=== PATIENT | male | born 1935 | race Two or more races ===

== ENCOUNTER 2025-07-22 14:01 | Inpatient (IN) | payer OTHER ==
[~2025-07-22] VITALS: Ht 162.6 cm; Wt 65.8 kg
[2025-07-22] MEDS ORDERED: 0.9 % SODIUM CHLORIDE 500 ML IV ONE (15:00)
[2025-07-22 16:22] LABS: BASO % 0.3 % (0.1-1.2); EOS # 0.44 (0.04-0.54); EOS % 5.7 % (0.7-7.0); LYMPH # 1.16 (1.18-3.74); LYMPH % 15.0 % (19.3-53.1); MEAN PLATELET VOLUME 10.40 fl (9.4-12.4); MONO # 0.88 (0.24-0.82); MONO % 11.4 % (4.7-12.5); NEUT # 5.16 (1.56-6.13); NEUT % 66.7 % (34.0-71.1); RED CELL DISTRIBUTION WIDTH 14.5 % (11.6-14.4)
[2025-07-22 16:41] LABS: COVID-19 AG NEGATIVE (NEGATIVE)
[2025-07-22 16:53] LABS: INR 1.05
[2025-07-22 16:54] LABS: ALT/SGPT 28.0 U/L (12-78); AST/SGOT 19.0 U/L (15-37); BILIRUBIN TOTAL 0.36 mg/dL (0.3-1.2); BUN CREA RATIO 27.0 (7.0-25.0); CREATININE SERUM 0.64 mg/dL (0.70-1.30); GFR 118.3; GLOBULINA 3.9 G/DL (2.4-3.5); GLUCOSE FASTING 106.0 mg/dL (65-100); OSMOLALITY SERUM 287.0 MOSM/KG (275-295); PROSTATIC SPECIFIC ANTIGEN 0.529 NG/ML (0.010-4.00)
[2025-07-22] MEDS ORDERED: CEFTRIAXONE SODIUM 1,000 MG VIAL IV ONE (18:15)
[2025-07-22] MEDS ORDERED: CEFTRIAXONE SODIUM 1,000 MG VIAL ONE (18:57)
[2025-07-22 19:55] LABS: URINE APPEARANCE Cloudy; URINE BILIRRUBIN Negative (NEGATIVE); URINE BLOOD Large; URINE COLOR Orange; URINE GLUCOSE Negative (NEGATIVE); URINE KETONE Negative (NEGATIVE); URINE LEUKOCYTE Large; URINE NITRATE Positive; URINE UROBILINOGEN 1.0 E.U./dl
[2025-07-22 19:56] LABS: URINE BACTERIA 3716.3 uL (0.0-1933); URINE CAST 0.43 uL (0.0-1.40); URINE EPITHELIAL CELLS 0.0 uL (0.0-38.8); URINE PROTEIN 300 (NEGATIVE); URINE RBC 5702.9 uL (0.0-20.8); URINE WBC 1848.6 uL (0.0-23.2)
[2025-07-22] MEDS ORDERED: MEROPENEM 1,000 MG VIAL IV ONE (21:00)
[2025-07-22] MEDS ORDERED: ATORVASTATIN CALCIUM 40 MG TABLET PO SCH (22:49)
[2025-07-22] MEDS ORDERED: MEROPENEM 1,000 MG in 0.9 % SODIUM CHLORIDE 100 ML IV SCH (22:49)
[2025-07-22] MEDS ORDERED: QUETIAPINE FUMARATE 25 MG TABLET PO SCH (22:57)
[2025-07-22] MEDS ORDERED: 0.9 % SODIUM CHLORIDE 1,000 ML IV SCH (23:00)
[2025-07-22] MEDS ORDERED: ACETAMINOPHEN 325 MG TABLET PO PRN (23:00)
[2025-07-23] MEDS ORDERED: MEROPENEM 500 MG in 0.9 % SODIUM CHLORIDE 50 ML IV SCH (08:00)
[2025-07-23 10:56] VITALS: BP 97/50; O2SAT 97
[2025-07-23] MEDS ORDERED: ASPIRIN 81 MG TABLET.EC PO SCH (11:00)
[2025-07-23] MEDS ORDERED: TAMSULOSIN HCL 0.4 MG CAP PO SCH (11:00)
[2025-07-23] MEDS ORDERED: QUETIAPINE FUMARATE 25 MG TABLET PO SCH (11:00)
[2025-07-23] MEDS ORDERED: CLOPIDOGREL BISULFATE 75 MG TABLET PO SCH (11:00)
[2025-07-23] MEDS ORDERED: LACTOBACILLUS ACIDOPHILUS 1 CAP CAP PO SCH (11:00)
[2025-07-23 16:00] VITALS: BP 127/65; O2SAT 96
[2025-07-23] MEDS ORDERED: QUETIAPINE FUMARATE 100 MG TABLET PO SCH (17:53)
[2025-07-23] MEDS ORDERED: QUETIAPINE FUMARATE PO NR (18:30)
[2025-07-24 00:47] VITALS: BP 92/57; O2SAT 96
[2025-07-24 08:00] VITALS: BP 112/69; O2SAT 94
[2025-07-24] MEDS ORDERED: QUETIAPINE FUMARATE 25 MG TABLET PO SCH (09:00)
[2025-07-24 16:00] VITALS: BP 111/66; O2SAT 96
[2025-07-24] MEDS ORDERED: QUETIAPINE FUMARATE PO SCH (17:00)
[2025-07-25 01:36] VITALS: BP 112/70; O2SAT 96
[2025-07-25 08:15] VITALS: BP 105/65; O2SAT 95
[2025-07-25 16:00] VITALS: BP 109/53; O2SAT 96
[2025-07-26 02:46] VITALS: BP 94/62; O2SAT 96
[2025-07-26 08:00] VITALS: BP 112/70; O2SAT 97
[2025-07-26 12:23] LABS: BASO % 0.4 % (0.1-1.2); EOS # 0.42 (0.04-0.54); EOS % 8.0 % (0.7-7.0); LYMPH # 1.67 (1.18-3.74); LYMPH % 31.7 % (19.3-53.1); MEAN PLATELET VOLUME 10.40 fl (9.4-12.4); MONO # 0.73 (0.24-0.82); MONO % 13.9 % (4.7-12.5); NEUT # 2.37 (1.56-6.13); NEUT % 45.0 % (34.0-71.1); RED CELL DISTRIBUTION WIDTH 14.6 % (11.6-14.4)
[2025-07-26] MEDS ORDERED: SOD FERRIC GLUC COMPLX/SUCROSE 62.5 MG in 0.9 % SODIUM CHLORIDE 50 ML IV SCH (17:00)
[2025-07-26 22:25] VITALS: BP 137/80
[2025-07-27 03:50] VITALS: BP 97/61; O2SAT 94
[2025-07-27 08:40] VITALS: BP 110/76
[2025-07-27 18:56] VITALS: BP 120/71
[2025-07-28 03:36] VITALS: BP 109/57; O2SAT 93
[2025-07-28 08:31] VITALS: BP 95/55
[2025-07-28 19:27] VITALS: BP 124/73
[2025-07-29 02:44] VITALS: BP 114/65; O2SAT 96
[2025-07-29 06:43] LABS: BASO % 0.3 % (0.1-1.2); EOS # 0.47 (0.04-0.54); EOS % 6.2 % (0.7-7.0); LYMPH # 1.58 (1.18-3.74); LYMPH % 20.9 % (19.3-53.1); MEAN PLATELET VOLUME 10.50 fl (9.4-12.4); MONO # 1.06 (0.24-0.82); NEUT # 4.41 (1.56-6.13); NEUT % 58.2 % (34.0-71.1); RED CELL DISTRIBUTION WIDTH 14.7 % (11.6-14.4)
[2025-07-29 06:52] LABS: MONO % 14.0 % (4.7-12.5)
[2025-07-29 07:15] LABS: BUN CREA RATIO 18.0 (7.0-25.0); CREATININE SERUM 0.56 mg/dL (0.70-1.30); GFR 138.01; GLUCOSE FASTING 96.0 mg/dL (65-100); OSMOLALITY SERUM 289.0 MOSM/KG (275-295)
[2025-07-29 09:22] VITALS: BP 123/77; O2SAT 93
[2025-07-29] MEDS ORDERED: ST. JOSEPH ASPI81 M2 PO (17:33)
[2025-07-29] MEDS ORDERED: CLOPIDOGREL BIS75 MG PO (17:33)
[2025-07-29] MEDS ORDERED: SEROQUEL XR150 MG PO (17:33)
[2025-07-29] MEDS ORDERED: TAMS0.4C PO (17:33)
[2025-07-29] MEDS ORDERED: Seroquel PO (17:33)
[2025-07-29] MEDS ORDERED: LORAZEPAM1 MG PO (17:33)
[2025-07-29] MEDS ORDERED: LIPITOR40 M1 PO (17:33)
[2025-07-29 17:43] VITALS: BP 127/81
[2025-07-30 02:04] VITALS: BP 104/71; O2SAT 98
[2025-07-30 08:44] VITALS: BP 134/73; O2SAT 96
== END 2025-07-30 11:02 | disposition home or self-care (01) | DRG 690 ==
LOC: ER 14:01 → MEDJ 22:37 → SURG 22:37 → SURH 22:37 → SURG 07-23 04:22 → SURH 07-23 15:55 → MEDJ 07-26 15:51
PROVIDERS: Emergency Medicine; Internal Medicine; ADMIT Internal Medicine; ATTEND Internal Medicine
PROC: BW21ZZZ Computerized Tomography (CT Scan) of Abdomen and Pelvis (ICD-10-PCS; principal; 2025-07-22)
PROC: 4A12X4Z Monitoring of Cardiac Electrical Activity, External Approach (ICD-10-PCS; 2025-07-22)
PROC: 8E0ZXY6 Isolation (ICD-10-PCS; 2025-07-23)
PROC: 05HB33Z Insertion of Infusion Device into Right Basilic Vein, Percutaneous Approach (ICD-10-PCS; 2025-07-24)
DX: N39.0 Urinary tract infection, site not specified (principal); F03.92 Unspecified dementia, unspecified severity, with psychotic disturbance; Z16.12 Extended spectrum beta lactamase (ESBL) resistance; R31.9 Hematuria, unspecified; R31.0 Gross hematuria; Z85.038 Personal history of other malignant neoplasm of large intestine; Z85.89 Personal history of malignant neoplasm of other organs and systems; Z86.73 Personal history of transient ischemic attack (TIA), and cerebral infarction without residual deficits; F03.90 Unspecified dementia, unspecified severity, without behavioral disturbance, psychotic disturbance, mood disturbance, and anxiety; N40.0 Benign prostatic hyperplasia without lower urinary tract symptoms; R19.09 Other intra-abdominal and pelvic swelling, mass and lump; F01.50 Vascular dementia, unspecified severity, without behavioral disturbance, psychotic disturbance, mood disturbance, and anxiety; Z78.9 Other specified health status; F02.80 Dementia in other diseases classified elsewhere, unspecified severity, without behavioral disturbance, psychotic disturbance, mood disturbance, and anxiety; K40.90 Unilateral inguinal hernia, without obstruction or gangrene, not specified as recurrent; B96.20 Unspecified Escherichia coli [E. coli] as the cause of diseases classified elsewhere